=== PATIENT | female | born 1975 | race Caucasian/White ===

== ENCOUNTER 2016-11-28 11:37 | Emergency (ER) | payer BC, OTHER ==
--- NOTE | ~2016-11-28 | ER ---
PATIENT'S NAME: [facility]INE [facility] AGE: 41 Y [address] ROOM: [place] [id number] LOCATION: [facility] ADMIT DATE: 11/28/2016 ER/Outpatient Report DISCHARGE DATE: 11/28/2016 FAMILY PHYSICIAN: PHYSICIAN, NO ATTENDING PHYSICIAN: Bola Dahl TIME OF ARRIVAL: 1137 hours. TIME OF EVALUATION: 1150 hours. CHIEF COMPLAINT: Not feeling well. HISTORY OF PRESENT ILLNESS: The patient is a 41-year-old female who presents to the emergency department, not feeling well. She reports it started about 3 days prior to arrival. She reports she has had sweating. She has had fevers of 99.4. Denies chills. Denies any troubles urinating. Does report some mild back pain. Denies any diarrhea or headache. Does report some shortness of breath. No cough. Does report some chest tightness and some nausea. Denies any vomiting. Does also report some abdominal pain. She reports she just does not feel well overall. She has noted that her blood pressure was elevated, and she became concerned about this as well. Overall, symptoms are currently 7/10 in severity. PAST MEDICAL HISTORY: Hypertension. PAST SURGICAL HISTORY: Hysterectomy. SOCIAL HISTORY: The patient smokes half-pack per day for 23 years. Drinks alcohol occasionally. Denies any illicit drug use. ALLERGIES: BENADRYL. MEDICATIONS: Lisinopril 40. PRIMARY CARE DOCTOR: . [facility] 41 Y [address] ROOM: [place] [address] LOCATION: [facility] ADMIT DATE: 11/28/2016 ER/Outpatient Report DISCHARGE DATE: 11/28/2016 FAMILY PHYSICIAN: PHYSICIAN, NO ATTENDING PHYSICIAN: Bola Dahl REVIEW OF SYSTEMS: All systems are reviewed by myself and are negative with the exception of those discussed in the HPI and Past Medical History. PHYSICAL EXAMINATION: VITAL SIGNS: Weight 84.9 kg. Blood pressure 198/118, pulse 72, respiratory rate 22, temperature 97.8, and oxygen saturation 98% on room air. GENERAL: The patient is a 41-year-old female who appears her stated age, in no distress. HEENT: Head is normocephalic and atraumatic. Pupils are equal, round, and reactive to light. Extraocular motions are intact. Nares are patent bilaterally. TMs are clear. Oropharynx is clear. Mucous membranes are dry. NECK: Supple. There is no new nuchal rigidity. CARDIOVASCULAR: Regular rate and rhythm. No murmurs, rubs, or gallops. LUNGS: Clear to auscultation bilaterally. No wheezes, rales, or rhonchi. ABDOMEN: Soft, nontender, and nondistended. No rebound, rigidity, or guarding. MUSCULOSKELETAL: The patient moves all 4 extremities. SKIN: Warm and dry. There are no rashes or lesions noted. LABORATORY AND X-RAY DATA: EKG is obtained and interpreted by myself at 1212 hours. It shows sinus rhythm with a rate of 70, normal axis, normal intervals. No ST elevation, ST depression. Nonspecific T waves. CBC is normal. Coags are normal. Urinalysis is negative. Urine hCG is negative. Venous blood gas 7.40/42/62/26/1. Lactate is 2.0. CMP is unremarkable except for potassium 3.5. LFTs are normal. Cardiac enzymes normal. Procalcitonin is less than 0.05. CT scan of the brain is obtained. I have discussed the results with the radiologist. It shows no acute process. D-dimer is negative. Cardiac enzymes are negative. IMPRESSION: 1. Elevated blood pressure. 2. Acute viral syndrome. 3. Initial visit. EMERGENCY DEPARTMENT COURSE: The patient was brought back to the examination room. Seen and evaluated by myself. IV is established. Laboratory analysis and imaging are obtained as described above. The patient is given 1 L of normal saline. She is given 4 mg of Zofran IV. She was also given 15 mg of Toradol IV. I have discussed the results with the patient. The patient does report she is feeling improved at this time. The patient's headache was not sudden onset. There is no thunderclap headache. CT scan of the brain was unremarkable. I think she is at extremely low risk of a subarachnoid hemorrhage. The patient has concern PATIENT'S NAME: [facility]ELINE [facility] AGE: 41 Y [address] ROOM: [place] [id number] LOCATION: [facility] ADMIT DATE: 11/28/2016 ER/Outpatient Report DISCHARGE DATE: 11/28/2016 FAMILY PHYSICIAN: PHYSICIAN, NO ATTENDING PHYSICIAN: Bola Dahl about her blood pressure being elevated primarily, and the last blood pressure taken is elevated. Thus, we will initiate the patient on hydrochlorothiazide 25 mg p.o. daily with instructions to follow up with primary care doctor in the next 2 to 3 days for re-evaluation. I have discussed return to care instructions including worsening symptoms or any other concerns, to return to the emergency department as soon as possible. The patient is agreeable without further questions at this time. DISPOSITION: The patient is discharged to home in good condition. DO CHALINO RANGEL/modl /[id number] d: 11/29/16 1145 t: 12/07/16 0701, OUTPATIENT REPORT
[2016-11-28 12:31] LABS: PCO2 42 mmHg (35-45); PO2 62 mmHg (80-90)
[2016-11-28 12:32] LABS: BASOPHIL # 0.1 K/uL (0.0-0.2); BASOPHIL % 0.5 %; EOSINOPHIL % 0.4 %; HEMATOCRIT 41.9 % (33.0-46.0); HEMOGLOBIN 14.8 g/dL (10.0-15.0); IMMATURE GRANULOCYTE % 0.3 %; LYMPHOCYTE # 3.3 K/uL (0.8-4.0); LYMPHOCYTE % 32.9 %; MCHC 35.3 gm/dL (32.0-36.5); MONOCYTE # 0.4 K/uL (0.0-1.0); MONOCYTE % 4.4 %; MPV 9.5 fl (9.4-12.4); NEUTROPHIL # (ANC) 6.2 K/uL (1.8-7.8); NEUTROPHIL % 61.5 %; NRBC % 0 /100WBC (0-0.00); PLATELET COUNT 274 K/uL (150-450); RBC 4.93 M/uL (3.50-5.50); RDW-CV 11.9 % (11.9-14.6); WBC 10.1 K/uL (4.0-11.0)
[2016-11-28 12:36] LABS: BILIRUBIN URINE NEGATIVE (NEGATIVE); BLOOD URINE NEGATIVE /UL (NEGATIVE); COLOR URINE STRAW (YELLOW); GLUCOSE URINE NEGATIVE (NEGATIVE); KETONE URINE NEGATIVE (NEGATIVE); LEUKOCYTES URINE NEGATIVE /UL (NEGATIVE); NITRITE URINE NEGATIVE (NEGATIVE); PROTEIN URINE NEGATIVE (NEGATIVE); TURBIDITY URINE CLEAR (CLEAR); UROBILINOGEN URINE NORMAL (NORMAL)
[2016-11-28 12:40] LABS: INR - (THERAPEUTIC) 1.01 (0.92-1.07); PROTIME 10.6 SECONDS (9.8-11.4); PTT 29 SECONDS (25-32)
[2016-11-28 12:54] LABS: ALBUMIN 4.2 gm/dL (3.5-5.0); ALK PHOS 60 IU/L (33-138); ALT 21 IU/L (12-78); ANION GAP 11.5 (10.0-19.0); AST 20 IU/L (10-40); BLOOD UREA NITROGEN 11 mg/dL (6-24); CALCIUM 8.6 mg/dL (8.5-10.5); CHLORIDE 109 mMol/L (96-110); CO2 23 mMol/L (22-32); CPK 122 IU/L (21-215); CREATININE 0.8 mg/dL (0.5-1.1); ESTIMATED GFR (MDRD EQUATION) > 60; POTASSIUM 3.5 mMol/L (3.7-5.1); SODIUM 140 mMol/L (135-145); TOTAL BILIRUBIN 0.3 mg/dL (0.0-1.5); TOTAL PROTEIN 7.2 g/dL (6.0-8.4)
[2016-11-28 14:33] LABS: CPK 110 IU/L (21-215)
== END 2016-11-28 15:19 | disposition disaster alternative care site (69) ==
LOC: GMED 11:37
PROVIDERS: Emergency Medicine
DX: B34.9 Viral infection, unspecified (principal); I10 Essential (primary) hypertension; F17.210 Nicotine dependence, cigarettes, uncomplicated; Z90.710 Acquired absence of both cervix and uterus; Z88.8 Allergy status to other drugs, medicaments and biological substances; Z79.899 Other long term (current) drug therapy
CPT/HCPCS: J1885; J2405